=== PATIENT | male | born 1950 | race Caucasian/White ===

== ENCOUNTER 2017-11-22 00:59 | Emergency (ER) | payer MEDICARE | END 2017-11-22 05:05 | disposition home or self-care (01) | LOC: ERS 00:59 | DX: L01.00 Impetigo, unspecified (principal); E16.2 Hypoglycemia, unspecified; Z79.899 Other long term (current) drug therapy | CPT/HCPCS: 99283 ==

== ENCOUNTER 2020-03-06 09:44 | Emergency (ER) | payer MEDICARE ==
[2020-03-06] MEDS ORDERED: Nitroglycerin 2% Ointment 1 INCH/1 GM Packet ONE (10:16)
[2020-03-06] MEDS ORDERED: Aspirin Chewable 81 MG TAB ONE (10:16)
[2020-03-06 10:23] LABS: #Lymphocytes 0.6 thou/uL (1.20-3.40); #Monocytes 0.6 thou/uL (0.11-0.59); #Neutrophils 5.5 thou/uL (1.40-6.50); %Basophils 0.3 % (0.0-1.0); %Monocytes 9.1 % (0.0-10.0); %Neutrophils 81.6 % (42.0-75.0); Hemoglobin 13.3 g/dL (14.0-18.0); Mean Corpuscular HGB CONC 35.8 g/dL (32.0-36.0); Mean Corpuscular Hemoglobin 35.2 pg (27.0-31.0); Mean Corpuscular Volume 98.3 fL (78.0-98.0); Mean Platelet Volume 7.1 fL (7.4-10.4); Platelet Count 170 thou/uL (130-400); RBC Distribution Width 12.1 % (11.5-14.5); Red Blood Cell (RBC) Count 3.77 mill/uL (4.70-6.10); White Blood Cell (WBC) Count 6.7 thou/uL (4.8-10.8)
--- NOTE | 2020-03-06 10:28 | RAD ---
Chest one view HISTORY: Chest pain. Evaluate for COVID-19. FINDINGS: No comparison. Cardiac silhouette and pulmonary vasculature are unremarkable. Mediastinum is midline. Lungs are slightly hyperinflated. Subtle ill-defined parenchymal opacity over the left lateral lung b ase shows very subtle obscuration of the left lateral hemidiaphragm. No evidence of pneumothorax. court recording monitor leads overlie the chest. IMPRESSION : Subtle left lateral basilar infiltrate. Clinical correlation regarding other signs and symptoms of le ft lower lobe pneumonitis is required.
[2020-03-06 10:44] LABS: ALT (SGPT) 15 U/L (8-55); AST (SGOT) 19 U/L (5-34); Albumin 4.5 g/dL (3.4-4.8); Alkaline Phosphatase 111 U/L (40-110); Anion Gap 12 mmol/L (10-20); BUN (Urea Nitrogen) 8 mg/dL (8.4-25.7); Bilirubin, Total 1.1 mg/dL (0.2-1.2); CK (CPK) 99 U/L (30-200); Calc. Creatinine Clearance 0 mL/min (70-130); Calcium 9.4 mg/dL (7.8-10.44); Carbon Dioxide 31 mmol/L (23-31); Chloride 87 mmol/L (98-107); Estimated GFR-MDRD Greater than 90; Globulin 2.9 g/dL (2.4-3.5); Glucose 133 mg/dL (80-115); Lipase 26 U/L (8-78); Potassium 3.5 mmol/L (3.5-5.1); Protein, Total 7.4 g/dL (5.8-8.1); Sodium 126 mmol/L (136-145)
[2020-03-06] MEDS ORDERED: Sodium Chloride 0.9% 100 ML ONE (11:08)
[2020-03-06] MEDS ORDERED: cefTRIAXone\\ROCEPHIN 2 GM VIAL ONE (11:08)
[2020-03-06 12:30] LABS: Troponin I 0.013 ng/mL (< 0.028)
--- NOTE | 2020-03-07 14:57 | EKG ---
Test Reason : Blood Pressure : / mmHG Vent. Rate : 080 BPM Atrial Rate : 080 BPM P-R Int : 162 ms QRS Dur : 086 ms QT Int : 372 ms P-R-T Axes : 074 028 049 degrees QTc Int : 429 ms Normal sinus rhythm Normal ECG Confirmed by ERNESTO LAGOS, NEHEMIAS ([id number]), editor at large JOSHUA GOMEZ ([id number]) on 03/07/2020 2:56:53 PM Referred By: Confirmed By:NEHEMIAS OROZCO MD
== END 2020-03-06 14:00 | disposition home or self-care (01) ==
LOC: ERS 09:44
DX: J18.9 Pneumonia, unspecified organism (principal); N40.0 Benign prostatic hyperplasia without lower urinary tract symptoms; F41.9 Anxiety disorder, unspecified; F32.9 Major depressive disorder, single episode, unspecified; Z79.899 Other long term (current) drug therapy
CPT/HCPCS: 36415; 71045; 80053; 82550; 83690; 84484; 85025; 85379; 93005; 96361; 96365; J0696; J3490

== ENCOUNTER 2020-05-13 06:57 | Outpatient (CLI) | payer MEDICARE, OTHER ==
[2020-05-13 14:28] LABS: INR-International Normal Ratio 0.9; PTT 29.5 sec (22.9-36.1); Prothrombin Time 12.2 sec (12.0-14.7)
[2020-05-13 14:34] LABS: Hemoglobin 12.2 g/dL (14.0-18.0); Mean Corpuscular HGB CONC 33.3 g/dL (32.0-36.0); Mean Corpuscular Hemoglobin 33.2 pg (27.0-31.0); Mean Corpuscular Volume 99.6 fL (78.0-98.0); Mean Platelet Volume 6.7 fL (7.4-10.4); Platelet Count 272 thou/uL (130-400); RBC Distribution Width 12.1 % (11.5-14.5); Red Blood Cell (RBC) Count 3.67 mill/uL (4.70-6.10); White Blood Cell (WBC) Count 3.9 thou/uL (4.8-10.8)
[2020-05-13 14:42] LABS: Anion Gap 10 mmol/L (10-20); BUN (Urea Nitrogen) 10 mg/dL (8.4-25.7); Calc. Creatinine Clearance 0 mL/min (70-130); Calcium 8.9 mg/dL (7.8-10.44); Carbon Dioxide 32 mmol/L (23-31); Chloride 92 mmol/L (98-107); Estimated GFR-MDRD Greater than 90; Glucose 89 mg/dL (80-115); Potassium 4.2 mmol/L (3.5-5.1); Sodium 130 mmol/L (136-145)
[2020-05-13 15:01] LABS: Bacteria/HPF 3+ HPF (None Seen); Bilirubin Negative (Negative); Blood, Urine Negative (Negative); Clarity Clear (Clear); Glucose, Urine (Dipstick) Normal (Negative); Leukocyte 250 Leu/uL (Negative); Nitrite Negative (Negative); Protein, Urine (Dipstick) Negative (Neg-Trace); RBC/HPF 0-3 HPF (0-3); Squamous Epithelial None Seen HPF (0-3); Urobilinogen Normal mg/dL (Less than 2)
[2020-05-14 13:10] LABS: SARS-CoV-2 MS2 Positive; SARS-CoV-2 N Gene Negative; SARS-CoV-2 S Gene Negative; SARS-CoV-2 orf1ab Negative
== END 2020-05-13 06:58 | disposition home or self-care (01) ==
LOC: LABBT 06:57
PROVIDERS: ATTEND Urology
DX: Z01.812 Encounter for preprocedural laboratory examination (principal); Z11.59 Encounter for screening for other viral diseases; N40.1 Benign prostatic hyperplasia with lower urinary tract symptoms; M81.0 Age-related osteoporosis without current pathological fracture; D61.818 Other pancytopenia
CPT/HCPCS: 80048; 81001; 85027; 85610; 85730; 87086; U0003; 87077; 87186; 87635; 93005; 93010

== ENCOUNTER 2020-06-17 06:27 | Outpatient (CLI) | payer MEDICARE, OTHER ==
[2020-06-17 11:27] LABS: INR-International Normal Ratio 0.9; PTT 33.2 sec (22.9-36.1)
[2020-06-17 11:28] LABS: Hemoglobin 11.4 g/dL (14.0-18.0); Mean Corpuscular HGB CONC 34.2 g/dL (32.0-36.0); Mean Corpuscular Hemoglobin 34.5 pg (27.0-31.0); Platelet Count 162 thou/uL (130-400); RBC Distribution Width 12.5 % (11.5-14.5); Red Blood Cell (RBC) Count 3.32 mill/uL (4.70-6.10); White Blood Cell (WBC) Count 3.2 thou/uL (4.8-10.8)
[2020-06-17 11:53] LABS: Bacteria/HPF None Seen HPF (None Seen); Bilirubin Negative (Negative); Blood, Urine Negative (Negative); Clarity Clear (Clear); Glucose, Urine (Dipstick) Normal (Negative); Ketone, Urine Negative (Negative); Leukocyte Negative Leu/uL (Negative); Nitrite Negative (Negative); Protein, Urine (Dipstick) Negative (Neg-Trace); RBC/HPF 0-3 HPF (0-3); Specific Gravity, Urine 1.006 (1.002-1.036); Squamous Epithelial None Seen HPF (0-3); Urobilinogen Normal mg/dL (Less than 2); WBC/HPF 0-3 HPF (0-3); pH, Urine 7.5 (5.0-9.0)
[2020-06-17 12:02] LABS: Anion Gap 11 mmol/L (10-20); BUN (Urea Nitrogen) 9 mg/dL (8.4-25.7); Calc. Creatinine Clearance 0 mL/min (70-130); Calcium 9.1 mg/dL (7.8-10.44); Carbon Dioxide 29 mmol/L (23-31); Chloride 97 mmol/L (98-107); Estimated GFR-MDRD Greater than 90; Glucose 83 mg/dL (80-115); Sodium 133 mmol/L (136-145)
[2020-06-18 12:20] LABS: SARS-CoV-2 MS2 Positive; SARS-CoV-2 N Gene Negative; SARS-CoV-2 S Gene Negative; SARS-CoV-2 orf1ab Negative
== END 2020-06-17 06:28 | disposition home or self-care (01) ==
LOC: LABBT 06:27
PROVIDERS: ATTEND Urology
DX: Z01.818 Encounter for other preprocedural examination (principal); Z11.59 Encounter for screening for other viral diseases; N40.1 Benign prostatic hyperplasia with lower urinary tract symptoms; D61.818 Other pancytopenia; M81.0 Age-related osteoporosis without current pathological fracture
CPT/HCPCS: 80048; 81001; 85027; 85610; 85730; 87086; 93005; U0003; 87635; 93010

== ENCOUNTER 2020-06-20 07:40 | Day surgery (SDC) | payer MEDICARE ==
[2020-06-20] MEDS ORDERED: Levofloxacin 500 mg/D5W 100 ml Premix Bag ONE (08:42)
[2020-06-20] MEDS ORDERED: Glycopyrrolate 0.2 MG/ML 5 ML SYRINGE ONE (09:13)
[2020-06-20] MEDS ORDERED: PHENYLEPHRINE-NS 100 MCG/ML 10 ML SYRINGE ONE (09:13)
[2020-06-20] MEDS ORDERED: PROPOFOL 200 MG/20 ML VIAL ONE (09:13)
[2020-06-20] MEDS ORDERED: Ondansetron PF 4 MG/2 ML Vial ONE (09:13)
[2020-06-20] MEDS ORDERED: Lidocaine 1% PF 5 ML VIAL ONE (09:13)
[2020-06-20] MEDS ORDERED: Fentanyl 100 MCG/2 ML VIAL ONE ×2 (12:46→14:53)
[2020-06-20] MEDS ORDERED: B & O ONE (14:23)
[2020-06-20] MEDS ORDERED: hydrALAZINE 20 MG/ML VIAL SLOW IVP PRN (14:25)
[2020-06-20] MEDS ORDERED: Morphine 2 MG/ML VIAL SLOW IVP PRN (14:25)
[2020-06-20] MEDS ORDERED: Mag-Al 1200 mg/1200 mg/30 ML UDCUP PO PRN (14:25)
[2020-06-20] MEDS ORDERED: diphenhydrAMINE 25 MG CAP PO PRN (14:25)
[2020-06-20] MEDS ORDERED: Acetaminophen 500 MG TAB PO PRN (14:25)
[2020-06-20] MEDS ORDERED: Oxybutynin 5 MG TAB PO PRN (14:25)
[2020-06-20] MEDS ORDERED: Phenazopyridine HCl 97.5 MG TABLET PO PRN (14:25)
[2020-06-20] MEDS ORDERED: Ondansetron PF 4 MG/2 ML Vial IVP PRN (14:25)
[2020-06-20] MEDS ORDERED: Bisacodyl 10 MG SUPP PR PRN (14:25)
[2020-06-20] MEDS ORDERED: Hyoscyamine Sulfate SL 0.125 mg Tablet SL PRN (14:25)
[2020-06-20] MEDS ORDERED: traMADol HCl 50 MG TAB PO PRN (14:27)
[2020-06-20] MEDS ORDERED: Polyethylene Glycol 3350 17 GM Packet PO PRN (14:28)
--- NOTE | 2020-06-20 17:10 | OP ---
DATE OF PROCEDURE: 06/20/2020 SERVICE: Urology. PREOPERATIVE DIAGNOSIS: Benign prostatic hypertrophy with obstruction. POSTOPERATIVE DIAGNOSIS: Benign prostatic hypertrophy with obstruction. PROCEDURE PERFORMED: Transurethral vaporization of prostate. INDICATION FOR PROCEDURE: Mr. Ford is a 70-year-old white male with BPH and urinary symptoms. He was not adequately managed on medical therapy. He elected for surgical intervention due to a large median lobe. He was not a candidate for UroLift, but we discussed transurethral vaporization of prostate instead, which he agreed to. Risks and benefits were discussed. DESCRIPTION OF PROCEDURE: After identification of armband and verification of consent, the patient was brought back to the operating room where he underwent general anesthesia with an LMA. He was placed in dorsal lithotomy position and prepped and draped in a sterile fashion. After appropriate time-out, a lubricated 26-Ivorian resectoscope sheath with visual obturator was placed through the urethra with ease into the bladder. The prostate was hypertrophic as previously been demonstrated on outpatient cystoscopy. The ureters were identified. The visual obturator was then switched out for the bipolar wide button for vaporization. The plasma button was then used to vaporize the prostate, starting at the bladder neck all the way down to the verumontanum, taking care not to pass the verumontanum. Vaporization was carried out circumferentially until all prostate tissue was removed. The median lobe was vaporized until it was flushed with the rest of the prostate. Relaxing incisions were made on the bladder neck at 5 and 7 o'clock and the intervening tissue vaporized away. Meticulous hemostasis was then performed after everything was dry. The bladder was washed out. Both ureters were then identified in orthotopic location. There was no visualized bleeding. The bladder was left full. The resectoscope removed. A 22-Ivorian 3-way Vick catheter was then placed into the patient's bladder with 30 mL of sterile water in the balloon. CBI was initiated. This was secured to the patient's leg with a StatLock. A B and O suppository was placed. He was taken out of positioning, awakened, taken to PACU for recovery in stable condition. COMPLICATIONS: None. ESTIMATED BLOOD LOSS: Minimal. RETAINED TUBES AND DRAINS: A 22-Ivorian 3-way Vick catheter on CBI. SPECIMENS: None. DISPOSITION: The patient will be kept in the hospital overnight. We will plan a void trial in the morning and then discharge home with care on an outpatient basis thereafter. Job ID: [id number]
[2020-06-20 18:40] VITALS: BMI 20.2
[2020-06-20] MEDS: Docusate 100 MG CAP PO SCH (20:10)
[2020-06-20] MEDS ORDERED: PARoxetine 20 MG TAB PO SCH (21:00)
[2020-06-21 06:03] LABS: Anion Gap 8 mmol/L (10-20); BUN (Urea Nitrogen) 8 mg/dL (8.4-25.7); Calc. Creatinine Clearance 88 mL/min (70-130); Calcium 8.8 mg/dL (7.8-10.44); Carbon Dioxide 30 mmol/L (23-31); Chloride 100 mmol/L (98-107); Estimated GFR-MDRD Greater than 90; Glucose 101 mg/dL (80-115); Potassium 3.5 mmol/L (3.5-5.1); Sodium 134 mmol/L (136-145)
[2020-06-21] MEDS: Docusate 100 MG CAP PO SCH (08:38)
[2020-06-21] MEDS ORDERED: Magnesium Oxide 250 MG TAB PO SCH (09:00)
[2020-06-21] MEDS ORDERED: Prevnar 13-Val Conj/PF 0.5 ML SYRINGE IM ONE (09:00)
--- NOTE | 2020-06-21 12:01 | PRG ---
DATE OF SERVICE: 06/21/2020 SUBJECTIVE: The patient states he is doing well. No complaints overnight. No clots or bladder spasms. OBJECTIVE: VITAL SIGNS: Temperature 98.1, pulse 66, respirations 16, blood pressure 121/73, and saturation 100% on room air. GENERAL: No apparent distress. CARDIOVASCULAR: Regular rate and rhythm. ABDOMEN: Soft, nontender, nondistended. Positive bowel sounds. : Vick catheter secured in place draining clear yellow urine. No blood. CBI is off. EXTREMITIES: No edema. LABORATORY EVALUATION: Full set of labs are in the [facility] system which I have reviewed. Of note, the patient's creatinine is 0.75, sodium of 134. ASSESSMENT AND PLAN: A 70-year-old white male, status post transurethral vaporization of prostate, postop day 1, recovering very well with minimal hematuria. We will plan to remove his catheter today and perform serial urine collections. If his urine looks good, he could probably go home and I will see him back for a postop visit. I have gone over all his discharge instructions. Job ID: [id number]
[2020-06-21 12:02] VITALS: BP 136/75; TEMP 97.9
--- NOTE | 2020-06-22 02:09 | DIS ---
DATE OF ADMISSION: 06/20/2020 DATE OF DISCHARGE: 06/21/2020 ADMITTING DIAGNOSIS: Benign prostatic hyperplasia. DISCHARGE DIAGNOSIS: Benign prostatic hyperplasia. PROCEDURE PERFORMED: Transurethral vaporization of the prostate. BRIEF HISTORY: Mr. Ford is a 70-year-old white male with history of BPH and urinary complaints. He wished to proceed with the UroLift, but he had a large median lobe and I recommended the TVP instead. He did have hyponatremia as well, which was cleared for surgical purposes by his PCP. He is now coming in for the surgery, please see the full H and P scanned in the [employer] [facility]. HOSPITAL COURSE: The patient underwent the surgery uneventfully (please see operative note for details). Postoperatively, the patient was kept in the hospital overnight for CBI. The CBI was stopped in the morning and the patient has a catheter removed. He was able to void. His urine was not very bloody and then, he was discharged home. DISPOSITION: Discharged to home. DISCHARGE CONDITION: Good. DISCHARGE MEDICATIONS: The patient will resume all of his home medications except for Saw [place] and Flomax, which can be discontinued. Additional new medications will be; 1. Tramadol. 2. Oxybutynin p.r.n. 3. Pyridium p.r.n. 4. Colace p.r.n. DISCHARGE INSTRUCTIONS: Discharge instructions were discussed with the patient in detail including when to call me, concerning signs or symptoms and what his activity restrictions were. I will see him back in approximately 2 weeks for a postop check. Job ID: [id number]
== END 2020-06-21 14:00 | disposition home or self-care (01) ==
LOC: SDC 07:40 → SURG B 14:29 → SDC 06-21 14:00
PROVIDERS: ATTEND Urology
PROC: 0V507ZZ Destruction of Prostate, Via Natural or Artificial Opening (ICD-10-PCS; principal; 2020-06-20)
DX: N40.1 Benign prostatic hyperplasia with lower urinary tract symptoms (principal); N13.8 Other obstructive and reflux uropathy; E87.1 Hypo-osmolality and hyponatremia; F32.9 Major depressive disorder, single episode, unspecified; Z79.899 Other long term (current) drug therapy
CPT/HCPCS: 52648; 80048; J2270; 36415; 36416; J1956; J2405; J2704; J3010

== ENCOUNTER 2020-06-28 19:31 | Emergency (ER) | payer MEDICARE ==
[2020-06-28 22:07] LABS: Bacteria/HPF None Seen HPF (None Seen); Bilirubin Negative (Negative); Blood, Urine 2+ (Negative); Clarity Clear (Clear); Glucose, Urine (Dipstick) Normal (Negative); Ketone, Urine Negative (Negative); Leukocyte Negative Leu/uL (Negative); Nitrite Negative (Negative); Protein, Urine (Dipstick) Negative (Neg-Trace); RBC/HPF 0-3 HPF (0-3); Specific Gravity, Urine 1.002 (1.002-1.036); Squamous Epithelial None Seen HPF (0-3); Urobilinogen Normal mg/dL (Less than 2); WBC/HPF 0-3 HPF (0-3); pH, Urine 7.5 (5.0-9.0)
== END 2020-06-28 23:39 | disposition home or self-care (01) ==
LOC: ERS 19:31
DX: R39.11 Hesitancy of micturition (principal); R31.9 Hematuria, unspecified; F41.9 Anxiety disorder, unspecified; F32.9 Major depressive disorder, single episode, unspecified; N40.0 Benign prostatic hyperplasia without lower urinary tract symptoms; Z79.899 Other long term (current) drug therapy
CPT/HCPCS: 81003; 81015; 99283

== ENCOUNTER 2022-08-17 17:30 | Outpatient (CLI) | payer MEDICARE | END 2022-08-17 17:31 | disposition home or self-care (01) | LOC: SLEEPLAB 17:30 | PROVIDERS: ATTEND Family Medicine | DX: G47.33 Obstructive sleep apnea (adult) (pediatric) (principal); R06.83 Snoring; F32.9 Major depressive disorder, single episode, unspecified; R35.1 Nocturia; G47.00 Insomnia, unspecified; G47.31 Primary central sleep apnea | CPT/HCPCS: 95800 ==

== ENCOUNTER 2024-01-21 16:00 | Outpatient (CLI) | payer MEDICARE | END 2024-01-21 16:01 | disposition home or self-care (01) | LOC: SLEEPLAB 16:00 | PROVIDERS: ATTEND Otolaryngology Otolaryngic Allergy | DX: G47.33 Obstructive sleep apnea (adult) (pediatric) (principal); R06.83 Snoring; G47.10 Hypersomnia, unspecified; E66.9 Obesity, unspecified; R00.0 Tachycardia, unspecified; Z68.20 Body mass index [BMI] 20.0-20.9, adult | CPT/HCPCS: 95811 ==

== ENCOUNTER 2025-11-12 08:46 | Outpatient (CLI) | payer MEDICARE | END 2025-11-12 08:47 | disposition home or self-care (01) | LOC: BICMAMMO 08:46 | PROVIDERS: ATTEND Family Medicine | DX: M81.0 Age-related osteoporosis without current pathological fracture (principal); M85.89 Other specified disorders of bone density and structure, multiple sites; E55.9 Vitamin D deficiency, unspecified | CPT/HCPCS: 77080 ==